=== PATIENT | female | born 1985 | race Caucasian/White ===

== ENCOUNTER → 2017-02-06 | Outpatient (CLI) | payer BC, OTHER ==
[2017-02-08 07:53] LABS: LUTEINIZING HORMONE 6.7 mIU/mL (.); PROGESTERONE 0.2 ng/mL (.)
== END ==
LOC: OD 12:04
PROVIDERS: ATTEND Specialist
DX: N97.9 Female infertility, unspecified (principal)
CPT/HCPCS: 36415; 82670; 83001; 83002; 84144

== ENCOUNTER 2017-05-25 21:51 | Emergency (ER) | payer OTHER ==
[2017-05-25 22:07] VITALS: BP 125/78
[2017-05-25 22:39] LABS: APPEARANCE,URINE CLEAR; BILIRUBIN,URINE NEGATIVE (NEGATIVE); CALCIUM OXALATE CRYSTALS,URINE RARE /HPF; GLUCOSE, URINE NEGATIVE (NEGATIVE); KETONES,URINE NEGATIVE (NEGATIVE); LEUKOCYTE ESTERASE,URINE NEGATIVE (NEGATIVE); NITRITE,URINE NEGATIVE (NEGATIVE); PROTEIN,URINE NEGATIVE (NEGATIVE); URINE SPECIFIC GRAVITY 1.011; UROBILINOGEN,URINE NEGATIVE mg/dL (<2.0)
== END 2017-05-26 | disposition left against medical advice (07) ==
LOC: ER 21:51
DX: Z53.21 Procedure and treatment not carried out due to patient leaving prior to being seen by health care provider (principal)
CPT/HCPCS: 81001

== ENCOUNTER 2017-06-02 18:42 | Emergency (ER) | payer BC, OTHER ==
--- NOTE | 2017-06-02 19:19 | ER Document Report ---
ED Medical Screen (RME) - General Chief Complaint: Vag Bleeding, +preg <12wks Stated Complaint: VAGINAL BLEEDING Time Seen by Provider: 06/02/17 19:15 Notes: Patient is approximately 9 weeks , G2, P1, A0. She is having some mild cramping. And having some vaginal bleeding today. She noticed some blood and a small clot on the toilet tissue when she wiped. Since then, she has noted some flow of red liquid. Patient has had some spotting or bleeding off and on during the past week or more. She was seen in [facility] and had an ultrasound. The fetus had a normal heartbeat, but they did find a clot around the placenta, but were told by the doctor that it was likely going to be okay. TRAVEL OUTSIDE OF THE [place] IN LAST 30 DAYS: No - Related Data Allergies/Adverse Reactions: oxycodone [From Percocet] Allergy (Verified 06/02/17 18:51) rash/hives Past Medical History - Social History Chew tobacco use (# tins/day): No Frequency of alcohol use: None Drug Abuse: None Renal/ Medical History: Denies: Hx Peritoneal Dialysis Surgical Hx: Negative - Immunizations Hx Diphtheria, Pertussis, Tetanus Vaccination: No History of Influenza Vaccine for 05/2017 - 10/2017 Season: No Physical Exam - Vital signs Vitals: Temp Pulse Resp BP Pulse Ox 97.8 F 96 18 120/81 100 06/02/17 18:48 06/02/17 18:48 06/02/17 18:48 06/02/17 18:48 06/02/17 18:48 Course - Vital Signs Vital signs: Temp Pulse Resp BP Pulse Ox 97.8 F 96 18 120/81 100 06/02/17 18:48 06/02/17 18:48 06/02/17 18:48 06/02/17 18:48 06/02/17 18:48
[2017-06-02 20:06] LABS: ABSOLUTE EOSINOPHILS # (AUTO) 0.1 10^3/uL (0.0-0.6); ABSOLUTE LYMPHOCYTES (AUTO) 1.9 10^3/uL (0.5-4.7); ABSOLUTE MONOCYTES (AUTO) 0.6 10^3/uL (0.1-1.4); ABSOLUTE NEUT (AUTO) 7.8 10^3/uL (1.7-8.2); BASOPHILS % (AUTO) 0.3 % (0-2); EOSINOPHILS % (AUTO) 0.6 % (0-6); HEMATOCRIT 35.5 % (36.0-47.0); HEMOGLOBIN 12.5 g/dL (12.0-15.5); LYMPHOCYTES % (AUTO) 18.4 % (13-45); MEAN CORPUSCULAR HEMOGLOBIN 30.4 pg (27.0-33.4); MEAN CORPUSCULAR HGB CONC 35.2 g/dL (32.0-36.0); MEAN CORPUSCULAR VOLUME 87 fl (80-97); MONOCYTES % (AUTO) 5.5 % (3-13); RED BLOOD COUNT 4.11 10^6/uL (3.72-5.28); RED CELL DISTRIBUTION WIDTH 11.6 % (11.5-14.0); SEGMENTED NEUTROPHILS % (AUTO) 75.2 % (42-78); WHITE BLOOD COUNT 10.4 10^3/uL (4.0-10.5)
--- NOTE | 2017-06-02 22:31 | ER Document Report ---
ED GI/ - General Chief Complaint: Vag Bleeding, +preg <12wks Stated Complaint: VAGINAL BLEEDING Time Seen by Provider: 06/02/17 19:15 Mode of Arrival: Ambulatory Information source: Patient Notes: 32 yo female with some vaginal spotting and [facility] US last week was subchorionic hemorrhage, and bicornuet uterus, 1 viable embryo, spotting stopped after 1/2 day. Started back tonight at 5 pm heavier bleeding. NO pain. IVF April 13, 2 embryos. EDC January 04, supposed to be 9 weeks. Taking progesterone suppositories bid, estrodial qid TRAVEL OUTSIDE OF THE [place] IN LAST 30 DAYS: No - Related Data Allergies/Adverse Reactions: oxycodone [From Percocet] Allergy (Verified 06/02/17 18:51) rash/hives Past Medical History - General Information source: Patient - Social History Smoking Status: Never Smoker Chew tobacco use (# tins/day): No Frequency of alcohol use: None Drug Abuse: None Lives with: Family Family History: Reviewed & Not Pertinent Patient has suicidal ideation: No Patient has homicidal ideation: No - Medical History Medical History: Negative Renal/ Medical History: Denies: Hx Peritoneal Dialysis Surgical Hx: Negative - Immunizations Hx Diphtheria, Pertussis, Tetanus Vaccination: No Review of Systems - Review of Systems Constitutional: No symptoms reported EENT: No symptoms reported Cardiovascular: No symptoms reported Respiratory: No symptoms reported Gastrointestinal: No symptoms reported Genitourinary: No symptoms reported Female Genitourinary: See HPI Musculoskeletal: No symptoms reported Skin: No symptoms reported Hematologic/Lymphatic: No symptoms reported Neurological/Psychological: No symptoms reported Physical Exam - Vital signs Vitals: Temp Pulse Resp BP Pulse Ox 97.8 F 96 18 120/81 100 06/02/17 18:48 06/02/17 18:48 06/02/17 18:48 06/02/17 18:48 06/02/17 18:48 Interpretation: Normal - General General appearance: Appears well, Alert In distress: None - HEENT Head: Normocephalic, Atraumatic Eyes: Normal Pupils: PERRL Lids everted for exam: right: Ptosis Pharynx: Normal Neck: Supple. No: Lymphadenopathy - Respiratory Respiratory status: No respiratory distress Chest status: Nontender Breath sounds: Normal Chest palpation: Normal - Cardiovascular Rhythm: Regular Heart sounds: Normal auscultation Murmur: No - Abdominal Inspection: Normal Distension: No distension Bowel sounds: Normal Tenderness: Nontender. No: Tender Organomegaly: No organomegaly - Back Back: Normal, Nontender. No: CVA tenderness - Extremities General upper extremity: Normal inspection, Nontender, Normal color, Normal ROM , Normal temperature General lower extremity: Normal inspection, Nontender, Normal color, Normal ROM , Normal temperature, Normal weight bearing. No: Aisha's sign - Neurological Neuro grossly intact: Yes Cognition: Normal Orientation: AAOx4 [place] Coma Scale Eye Opening: Spontaneous [place] Coma Scale Verbal: Oriented [place] Coma Scale Motor: Obeys Commands [place] Coma Scale Total: 15 Speech: Normal Motor strength normal: LUE, RUE, LLE, RLE Sensory: Normal - Psychological Associated symptoms: Normal affect, Normal mood - Skin Skin Temperature: Warm Skin Moisture: Dry Skin Color: Normal Skin irregularity: negative: Rash Course - Re-evaluation Re-evalutation: 06/03/17 06:15 late entry: viable IUP with HR 178m discussed this with pt and she will follow up with [facility], she was supposed to have US with them today. Gave all the labs and US report. She states she still has some bleeding but no pain. - Vital Signs Vital signs: Temp Pulse Resp BP Pulse Ox 98.9 F 61 16 113/65 98 06/02/17 23:09 06/02/17 23:09 06/02/17 23:09 06/02/17 23:09 06/02/17 23:09 - Laboratory Result Diagrams: 06/02/17 19:50 Laboratory results interpreted by me: 06/02/17 06/02/17 19:50 19:50 Hct 35.5 L Beta HCG, Quant 08914.00 H Discharge - Discharge Clinical Impression: Vaginal bleeding, viable 8 wk 6 day IUP Condition: Good Disposition: HOME, SELF-CARE Additional Instructions: copy of labwork given to the pt and the US reading to er if pain or increased bleeding see obgyn in am Please complete the patient satisfaction survey if you get one, and return it.. If you do not receive a survey, then you can go to the [facility] website, [email or web address] and place your comments about your very good care. Thank you very much. It was a pleasure being your medical provider today. Referrals: GREGORIO SMITH MD [Primary Care Provider] - Follow up tomorrow
--- NOTE | 2017-06-02 22:57 | RADIOLOGY REPORT (SQ) ---
EXAM DESCRIPTION: U/S OB TRANSVAG W/DOPPLER COMPLETED DATE/TIME: 06/02/2017 10:32 pm REASON FOR STUDY: Approx 9 weeks with vaginal bleeding COMPARISON: None. TECHNIQUE: Transvaginal static and realtime grayscale images acquired of the pelvis. Additional geo cted spectral and color Doppler images recorded. All images stored on PACs. bHC,500 LIMITATIONS: None. FINDINGS: FETUS: Living intrauterine . EGA: 8 weeks 6 days CRYSTAL: 01/06/2018 FHR: 178 beats per minute. There 2 adjacent areas of circumscribed fluid near the , 1 measuring 1.4 cm in greatest dime nsion, as sac at 1.5 cm in greatest dimension. No additional yolk sac or pole identified. UTERUS: No masses. No anomalies. CERVICAL LENGTH: 3.6 cm Closed. RIGHT ADNEXA: Normal ovary with normal vascular flow. No adnexal free fluid. No adnexal masses. LEFT ADNEXA: Normal ovary with normal vascular flow. No adnexal free fluid. No adnexal masses. FREE FLUID: None. OTHER: No other significant finding. IMPRESSION: LIVING INTRAUTERINE . EGA 8 weeks 6 days There 2 adjacent areas of circumscribed fluid near the , 1 measuring 1.4 cm in greatest dime nsion, as sac at 1.5 cm in greatest dimension. No additional yolk sac or pole identified. Trimester of : First - 0 to 13 weeks. TECHNICAL DOCUMENTATION: JOB ID: [id number] [employer]- All Rights Reserved
[2017-06-02 23:11] VITALS: BP 113/65
== END 2017-06-02 23:19 | disposition home or self-care (01) ==
LOC: ER 18:42
DX: O20.9 Hemorrhage in early pregnancy, unspecified (principal); Q51.3 Bicornate uterus; Z3A.08 8 weeks gestation of pregnancy; Z88.6 Allergy status to analgesic agent
CPT/HCPCS: 36415; 76817; 84702; 85025; 86900; 86901; 93976; 99284